=== PATIENT | female | born 1960 | race Caucasian/White ===

== ENCOUNTER → 2016-07-18 | Outpatient (CLI) | payer OTHER ==
--- NOTE | 2016-07-18 23:01 | DX ---
DEXA Bone Mineral Densitometry Clinical Indications: Baseline study evaluate for osteoporosis family history and prior history of f racture Comparison: None Technique: Bone Mineral Densitometry (BMD) by Dual Energy X-Ray Absorptiometry (DEXA) was performed utilizing the [employer] scanner. The lumbar spine was evaluated in the AP projection. The bilat eral hips and forearm were evaluated in the AP projection. Vertebral fracture assessment was also pe rformed. AP Lumbar Spine: The L1, L2, L3 and L4 vertebral bodies were evaluated. BMD: 1.17 gm/cm2 T-score: -0.1 SD Z-score: 0.9 SD AP Left Hip: Total BMD: 0.816 gm/cm2 T-score: -1.5 SD Z-score: -0.7 SD AP Right Hip: Total BMD: 0.775 gm/cm2 T-score: -1.8 SD Z-score: -1.0 SD AP right Forearm, 07/03: BMD: 0.887 gm/cm2 T-score: 0.1 SD Z-score: 0.5 SD Vertebral Fracture Assessment: No significant fracture deformity. No prevertebral aortic calcificati on, significant marginal bone spurring, facet arthrosis, or intrinsic vertebral body sclerosis that would effect the accuracy of the lumbar spine BMD measurement. Conclusion: Considering the lowest measured site, the patient is osteopenic. The ten year FRAX risk for any major osteoporotic fracture , which excludes the risk for a wrist frac ture, is 11.8 % and for a hip fracture is 1.8 %. Any bone loss in this patient is probably related to aging or estrogen deficiency. To prevent osteoporosis and to promote bone density, consider the following recommendations: 1. Pursue a regular regimen of weightbearing and muscle strengthening exercises in order to reduce t he risk of falls and fracture (as tolerated by the patient's general medical condition). 2. Ensure that total daily calcium intake is at least 1500 mg (diet plus supplements). 3. Check serum hydroxy vitamin D3 (normal >30ng/ml). 4. Ensure daily intake of vitamin D is 800 international units. 5. Consider follow-up DEXA scan in two years to assess the rate of bone loss in this patient.
--- NOTE | 2016-07-24 16:33 | MA ---
Screening Digital Mammogram With iCAD Analysis Clinical Indications: Routine screening. Technique: Standard cephalocaudal projections are obtained. Digital breast tomosynthesis was performe d in the MLO projection with reconstruction at 1.0 mm slice thickness and composite MLO views reconst ructed. This examination is processed by the iCAD computer aided detection system. Comparison: August 2012 Breast density: Type D: Extremely dense. Findings: CAD was reviewed. No masses, suspicious calcifications or secondary signs of malignancy are seen. There has been no significant change in the appearance of either breast. Impression: Negative mammogram. BI-RADS 1. Recommendation: Routine mammographic screening in one year as long as physical examination is negativ e in this patient with extremely dense breast parenchyma. [facility] will send a result letter to the patient. Negative mammography should not preclude additional workup of a clinically suspicious finding. The patient's information is entered into a reminder system with a target due date for her next mammo gram.
== END ==
LOC: FIMAGING 08:54
PROVIDERS: ATTEND Nurse Practitioner
DX: Z12.31 Encounter for screening mammogram for malignant neoplasm of breast (principal); Z13.820 Encounter for screening for osteoporosis; M85.80 Other specified disorders of bone density and structure, unspecified site; Z82.62 Family history of osteoporosis; Z87.81 Personal history of (healed) traumatic fracture
CPT/HCPCS: G0202

== ENCOUNTER → 2017-01-03 | Outpatient (CLI) | payer OTHER | LOC: FIMAGING 15:33 | PROVIDERS: ATTEND Physician Assistant | DX: R07.81 Pleurodynia (principal) ==

== ENCOUNTER → 2018-12-01 | Outpatient (CLI) | payer OTHER | LOC: FIMAGING 12:35 ==